=== PATIENT | male | born 2000 | race Caucasian/White ===

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

== ENCOUNTER 2022-08-13 11:09 | Emergency (ER) | payer BC ==
[~2022-08-13] VITALS: Ht 188 cm; Wt 131.8 kg
[2022-08-13 11:38] VITALS: BP 128/83
[2022-08-13] MEDS ORDERED: SULF1TAB49 PO (15:43)
== END 2022-08-13 15:56 | disposition home or self-care (01) ==
LOC: ER 11:10
DX: K65.0 Generalized (acute) peritonitis (principal); J45.909 Unspecified asthma, uncomplicated; F31.9 Bipolar disorder, unspecified; F17.200 Nicotine dependence, unspecified, uncomplicated
CPT/HCPCS: 99283

== ENCOUNTER 2022-08-15 02:08 | Emergency (ER) | payer BC ==
[~2022-08-15] VITALS: Ht 188 cm; Wt 130.0 kg
[~2022-08-15 02:08] MED LIST changes: +SULF1TAB49 PO
[2022-08-15] MEDS ORDERED: normal saline 1000ML IV soln IV ONE (03:05)
[2022-08-15] MEDS ORDERED: CefTRIAXone 2gm/D5W 50ml BAG 50 ML IV ONE (03:05)
[2022-08-15 03:49] LABS: EOSINOPHILS % (AUTO) 0.5 % (0-6); HEMATOCRIT 43.4 % (42.0-52.0); HEMOGLOBIN 14.5 g/dl (14.0-17.9); LYMPHOCYTES % (AUTO) 14.6 % (21-51); MEAN CORPUSCULAR HEMOGLOBIN 29.1 PG (27.0-31.0); MEAN CORPUSCULAR HGB CONC 33.4 g/dL (33.0-36.5); MEAN CORPUSCULAR VOLUME 87.1 FL (78-98); MEAN PLATELET VOLUME 9.5 FL (7.4-10.4); MONOCYTES % (AUTO) 7.2 % (2-12); NEUTROPHILS % (AUTO) 76.8 % (42-75); PLATELET COUNT 201 X10'3 (140-440); RED BLOOD COUNT 4.98 X10'6 (4.70-6.10); RED CELL DISTRIBUTION WIDTH 13.4 % (11.5-14.5); WHITE BLOOD COUNT 13.7 X10'3 (4.5-11.0)
[2022-08-15 03:50] LABS: BASOPHILS # (AUTO) 0.1 X10'3 (0-0.2); BASOPHILS % (AUTO) 0.9 % (0-1); EOSINOPHILS # (AUTO) 0.1 X10'3 (0-0.9); NEUTROPHILS # (AUTO) 10.5 X10'3 (1.8-7.7)
[2022-08-15 04:05] LABS: ALANINE AMINOTRANSFERASE 39 U/L (12-78); ALBUMIN 3.5 G/DL (3.4-5.0); ALBUMIN/GLOBULIN RATIO 0.8 (1.1-1.5); ALKALINE PHOSPHATASE 97 IU/L (46-116); ANION GAP 11 (8-16); ASPARTATE AMINO TRANSFERASE 21 U/L (10-37); BILIRUBIN,TOTAL 1.1 MG/DL (0.1-1.0); BLOOD UREA NITROGEN 7 MG/DL (7-18); BUN/CREATININE RATIO 6.4 (5.4-32.0); CALCIUM 9.3 MG/DL (8.5-10.1); CHLORIDE 101 MMOL/L (99-107); GLUCOSE 127 MG/DL (70-104); POTASSIUM 3.4 MMOL/L (3.5-5.1); SODIUM 135 MMOL/L (135-145); TOTAL CARBON DIOXIDE 23.5 MMOL/L (24-32); TOTAL PROTEIN 8.1 G/DL (6.4-8.2); eGFR 85 ML/MIN
[2022-08-15] MEDS ORDERED: LIDOcaine 1% w/EPI 1:100,000 30ml vial (MDV) IJ ONE (04:40)
[2022-08-15] MEDS ORDERED: LIDOCAINE 1%/EPI 1:100,000 inj. 10 ML multi-dose vial IJ ONE (04:55)
[2022-08-15 05:10] VITALS: BP 124/89
[2022-08-15] MEDS ORDERED: CEPH-585 PO (05:14)
[2022-08-15 05:26] LABS: CLARITY,URINE CLEAR (Clear); COLOR,URINE AMBER (Yellow); GLUCOSE, URINE NEGATIVE (Neg); KETONES,URINE NEGATIVE (Neg); LEUKOCYTE ESTERASE ,URINE NEGATIVE (Neg); NITRITES, URINE NEGATIVE (Neg); OCCULT BLOOD,URINE NEGATIVE (Neg); PROTEIN,URINE TRACE mg/dl (Neg)
[2022-08-15 05:29] LABS: UA COLLECTION TYPE NON-SPECIFIED
[2022-08-15 05:33] LABS: BACTERIA,URINE FEW /HPF (Neg); MUCUS STRANDS MODERATE /LPF (Neg); RBC,URINE 0-2 /HPF (0-2); SQUAMOUS EPITHELIAL CELL,UR NONE SEEN /LPF (FEW); WBC,URINE 0-4 /HPF (0-4)
== END 2022-08-15 05:32 | disposition home or self-care (01) ==
LOC: ER 02:09
DX: L02.214 Cutaneous abscess of groin (principal); L03.90 Cellulitis, unspecified; R11.2 Nausea with vomiting, unspecified; M54.9 Dorsalgia, unspecified; J45.909 Unspecified asthma, uncomplicated; F31.9 Bipolar disorder, unspecified; F20.9 Schizophrenia, unspecified; Z79.899 Other long term (current) drug therapy
CPT/HCPCS: 10060; 36415; 80053; 81001; 84145; 85025; 96365; 99284; A6266; J0696; J3490; J7030; A6407; A6449

== ENCOUNTER 2022-08-20 14:31 | Emergency (ER) | payer BC ==
[~2022-08-20] VITALS: Ht 188 cm; Wt 131.8 kg
[~2022-08-20 14:31] MED LIST changes: +CEPH-585 PO
[2022-08-20 15:51] VITALS: BP 136/100
== END 2022-08-20 17:36 | disposition home or self-care (01) ==
LOC: ER 14:32
DX: L03.314 Cellulitis of groin (principal); J45.909 Unspecified asthma, uncomplicated; F31.9 Bipolar disorder, unspecified
CPT/HCPCS: 99281